=== PATIENT | female | born 1995 | race Caucasian/White ===

== ENCOUNTER 2019-10-28 11:46 | Emergency (ER) | payer BC ==
[~2019-10-28] VITALS: Ht 165.1 cm; Wt 61.2 kg
[2019-10-28 12:02] VITALS: BP_SYST 138
[2019-10-28] MEDS ORDERED: PRO10 PO (12:02)
[2019-10-28] MEDS ORDERED: BACITRACIN 1 GM OINT TP ONE ×2 (13:00→13:26)
[2019-10-28] MEDS ORDERED: DIPH-TET-PERTUS Vaccine 0.5 ML VIAL (ADACEL) I.M. ONE ×2 (13:00→13:25)
[2019-10-28 13:27] VITALS: BP_SYST 138
== END 2019-10-28 13:27 | disposition home or self-care (01) ==
LOC: SED 11:46
DX: S01.25XA Open bite of nose, initial encounter (principal); W54.0XXA Bitten by dog, initial encounter; Y93.89 Activity, other specified; Y92.89 Other specified places as the place of occurrence of the external cause; Y99.8 Other external cause status
CPT/HCPCS: 90715; 99283